=== PATIENT | male | born 1990 | race Caucasian/White ===

== ENCOUNTER 2021-07-10 09:09 | Day surgery (SDC) | payer BC ==
[~2021-07-10 09:09] MED LIST: Lactated Ringers 1,000 ML IV SCH; Sodium Chloride 0.9% 10 ML Syringe FLUSH PRN; Sodium Chloride 0.9% 2.5 ML Syringe FLUSH PRN; Sodium Chloride 0.9% 20 ML SDV IV PRN
[2021-07-10] MEDS ORDERED: Lidocaine 1% 5 ML VIAL ONE (09:24)
[2021-07-10] MEDS ORDERED: Propofol 200 MG/20 ML SDV ONE ×2 (09:25→11:03)
[2021-07-10] MEDS ORDERED: fentaNYL 100 MCG/2 ML SDV ONE (09:25)
== END 2021-07-10 12:14 | disposition home or self-care (01) ==
LOC: MW.SDS 09:09
PROVIDERS: ATTEND Surgery
DX: D12.3 Benign neoplasm of transverse colon (principal); K52.9 Noninfective gastroenteritis and colitis, unspecified; D12.5 Benign neoplasm of sigmoid colon; D12.8 Benign neoplasm of rectum; D12.4 Benign neoplasm of descending colon; H91.93 Unspecified hearing loss, bilateral; E78.00 Pure hypercholesterolemia, unspecified; K21.9 Gastro-esophageal reflux disease without esophagitis; E66.9 Obesity, unspecified; Z68.38 Body mass index [BMI] 38.0-38.9, adult; Z88.0 Allergy status to penicillin; Z79.899 Other long term (current) drug therapy
CPT/HCPCS: 45380; J2704; J3010; J7120; 00811

== ENCOUNTER 2023-01-01 20:58 | Emergency (ER) | payer BC ==
[2023-01-01] MEDS ORDERED: Sodium Chloride 0.9% 10 ML Syringe FLUSH PRN (21:05)
[2023-01-01] MEDS ORDERED: Ondansetron 4 MG/2 ML SDV IVPUSH ONE (21:05)
[2023-01-01] MEDS ORDERED: Sodium Chloride 0.9% 2.5 ML Syringe FLUSH PRN (21:05)
[2023-01-01] MEDS ORDERED: Lactated Ringers 1,000 ML IV SCH ×2 (21:15→22:00)
[2023-01-01] MEDS ORDERED: Ketorolac 30 MG/ML SDV IVPUSH ONE (21:24)
[2023-01-01 21:41] LABS: BASOPHILS PERCENT AUTO 0.2 % (0.0-1.5); EOSINOPHILS PERCENT AUTO 0.1 % (0.0-7.0); HEMATOCRIT 44.6 % (38.0-50.0); HEMOGLOBIN 15.3 g/dL (13.0-17.0); LYMPHOCYTES ABSOLUTE AUTO 2.2 K/uL (0.6-2.4); LYMPHOCYTES PERCENT AUTO 14.8 % (16.0-40.0); MEAN CORPUSCULAR HEMOGLOBIN 30.1 pg (27.0-32.0); MEAN CORPUSCULAR HGB CONC 34.3 g/dL (31.0-37.0); MEAN CORPUSCULAR VOLUME 87.8 fL (80.0-98.0); MONOCYTES ABSOLUTE AUTO 0.8 K/uL (0.0-0.8); MONOCYTES PERCENT AUTO 5.6 % (0.0-15.0); NEUTROPHILS ABSOLUTE AUTO 11.8 K/uL (1.4-5.7); NEUTROPHILS PERCENT AUTO 79.3 % (48.0-80.0); NRBC ABSOLUTE 0 K/uL; PLATELET COUNT,PLT 800 K/uL (150-400); RED BLOOD CELL COUNT 5.08 M/uL (4.50-5.90); WHITE BLOOD CELL COUNT,WBC 14.88 K/uL (4.0-11.0)
[2023-01-01] MEDS ORDERED: diphenhydrAMINE 50 MG/ML SDV IVPUSH ONE (21:56)
[2023-01-01] MEDS ORDERED: Metoclopramide 10 MG/2 ML SDV IVPUSH ONE (21:56)
[2023-01-01 22:11] LABS: A/G RATIO 1.2 (0.9-1.6); ALBUMIN 4.6 g/dL (3.4-5.0); BILIRUBIN TOTAL 0.7 mg/dL (0.2-1.0); CALCIUM 9.6 mg/dL (8.5-10.1); CARBON DIOXIDE,CO2 30.2 mmol/L (21.0-32.0); CREATININE 1.2 mg/dL (0.8-1.3); EST CRCL DRUG DOSING (CG) 100.85 mL/min; POTASSIUM,K 4.1 mmol/L (3.5-5.1); PROTEIN TOTAL,TP 8.4 g/dL (6.4-8.2)
== END 2023-01-02 00:05 | disposition home or self-care (01) ==
LOC: MW.ED 20:58
DX: R11.2 Nausea with vomiting, unspecified (principal); E78.00 Pure hypercholesterolemia, unspecified; K21.9 Gastro-esophageal reflux disease without esophagitis; E66.9 Obesity, unspecified; Z68.37 Body mass index [BMI] 37.0-37.9, adult; Z20.822 Contact with and (suspected) exposure to COVID-19; Z88.0 Allergy status to penicillin
CPT/HCPCS: 36415; 76705; 80053; 83690; 85025; 87635; 87651; 96361; 96374; 96375; 99284; J1200; J1885; J2405; J2765; J3490; J7120; U0002

== ENCOUNTER 2024-09-16 19:20 | Emergency (ER) | payer BC | END 2024-09-17 00:33 | disposition home or self-care (01) | LOC: MW.ED 19:20 | DX: J02.9 Acute pharyngitis, unspecified (principal); R50.9 Fever, unspecified; E78.00 Pure hypercholesterolemia, unspecified; E66.9 Obesity, unspecified; Z79.899 Other long term (current) drug therapy; Z88.0 Allergy status to penicillin; Z68.36 Body mass index [BMI] 36.0-36.9, adult | CPT/HCPCS: 87651; 99283 ==